=== PATIENT | male | born 1960 | race Caucasian/White ===

== ENCOUNTER 2017-12-29 18:39 | Observation (INO) | payer OTHER ==
[~2017-12-29] VITALS: Ht 177.8 cm; Wt 65.8 kg
--- NOTE | 2017-12-29 19:23 | ED GENERAL ADULT ---
History of Present Illness General Chief Complaint: General Adult Stated Complaint: "HIGH BLOOD PRESSURE 195/130" Source: patient Exam Limitations: no limitations Vital Signs & Intake/Output Vital Signs & Intake/Output Vital Signs Date Time Temp Pulse Resp B/P B/P Pulse O2 O2 Flow FiO2 Mean Ox Delivery Rate 12/30 0053 62 20 180/90 98 12/29 2300 63 20 160/102 98 12/29 2232 98.2 20 98 156/90 12/29 2232 68 156/90 12/29 2147 97.2 65 20 160/100 12/29 2016 160/100 12/29 1951 65 176/106 12/29 1950 97.2 65 20 176/106 12/29 1856 97.2 65 20 190/106 98 Room Air ED Intake and Output 12/30 0000 12/29 1200 Intake Total Output Total Balance Patient 195 lb Weight Weight Reported by Patient Measurement Method Allergies Coded Allergies: Penicillins (Intermediate, HIVES 12/29/17) Reconcile Medications Doxycycline Hyclate 100 MG CAPSULE 1 CAP PO BID LYME (Reported) Lisinopril 10 MG TABLET 1 TAB PO DAILY HYPERTENSION Simvastatin (Simvastatin*) 20 MG TABLET 1 TAB PO QPM CHOL (Reported) Triage Note: TRIAGE: PT TO ER C/C PRESSURE TYPE PAIN BEHIND EYES AND "TO MY PEC" MUSCLES. ALSO COMPLAINS OF FEELING TIRED, HAVING NO ENERGY AND HIGH B/P AT HOME. PT EVALUATED IN [place] BY AD COLLADO PRIOR TO TRIAGE. MANUAL B/P 190/106 AT TRIAGE. Triage Nurses Notes Reviewed? yes Onset: Gradual Duration: constant Timing: recent history Severity: moderate Severity Numbers: 5 HPI: Patient is a 57-year-old male with a past medical history of hyperlipidemia ADHD and LYME disease in which he takes when necessary doxycycline WHO PRESENTS TO THE emergency with concerns of a one-week history of generalized headache and pain behind the eye and generalized weakness and fatigue patient was evaluated at urgent care facility yesterday and noted to have significantly high blood pressure were blood pressure still continued today as well as symptoms were he presents to emergency room. Patient denies any fever chills neck pain shortness of breath cough chest pain arm pain jaw pain nausea vomiting Patient denies any acute onset thunderclap headache or worst headache of life (Suzanne DUONG,Oumou) Past History Travel History Traveled to [place] past 21 day No Medical History Any Pertinent Medical History? see below for history Neurological: NONE EENT: NONE Cardiovascular: hyperlipidemia Respiratory: NONE Gastrointestinal: NONE Hepatic: NONE Renal: NONE Musculoskeletal: NONE Psychiatric: NONE Endocrine: NONE Blood Disorders: NONE Cancer(s): NONE TRANSLATION DIRECTOR/Reproductive: NONE Surgical History Surgical History: non-contributory Psychosocial History What is your primary language Korean Tobacco Use: Never used ETOH Use: occasional use Illicit Drug Use: denies illicit drug use Family History Hx Contributory? No (Oumou Ryan) Review of Systems Review of Systems Constitutional: Reports: see HPI. Denies: chills, fever. EENTM: Reports: see HPI, eye pain. Respiratory: Reports: no symptoms. Cardiovascular: Reports: no symptoms. GI: Reports: no symptoms. Genitourinary: Reports: no symptoms. Musculoskeletal: Reports: no symptoms. Skin: Reports: no symptoms. Neurological/Psychological: Reports: see HPI, headache. Hematologic/Endocrine: Reports: no symptoms. Immunologic/Allergic: Reports: no symptoms. All Other Systems: Reviewed and Negative (Oumou Ryan) Physical Exam Physical Exam General Appearance: no apparent distress, alert, comfortable Head: atraumatic Eyes: Bilateral: normal appearance, PERRL. Ears, Nose, Throat: normal pharynx, normal ENT inspection, hearing grossly normal Neck: normal inspection, supple Respiratory: normal breath sounds, chest non-tender Cardiovascular: regular rate/rhythm Peripheral Pulses: 2+ radial (R) Gastrointestinal: normal bowel sounds, soft, non-tender Extremities: normal inspection, normal capillary refill, normal range of motion Skin: intact, normal color, warm/dry Core Measures ACS in differential dx? Yes CVA/TIA Diagnosis: No Sepsis Present: No Sepsis Focused Exam Completed? No (Oumou Ryan) Progress Differential Diagnoses I considered the following diagnoses in my evaluation of the patient: [ Hypertensive urgency hypertensive emergency END organ failure Lyme disease] Plan of Care: Orders Procedure Date/time Status Nothing by Mouth 12/30 B Active Add-on Test (ER Only) 12/30 136 Active Patient Data 12/30 117 Active Add-on Test (ER Only) 12/30 113 Active Saline Lock 12/[address] in observation 12/30 16 Active Misc Message 12/30 16 Active ED Holding Orders 12/30 16 Active Code Status 12/30 16 Active Vital Signs 12/29 2215 Active Add-on Test (ER Only) 12/29 2005 Active Add-on Test (ER Only) 12/29 1954 Active URINE DRUGS OF ABUSE 12/29 1918 Active URINALYSIS 12/29 1916 Complete THYROID STIMULATING HORMONE 12/29 1913 Active THYROXINE 12/29 1913 Active LYME TITRE 12/29 1913 Active ETHANOL 12/29 1913 Active Telemetry/Electrical Appliance Mechanic 12/29 1856 Active TROPONIN LEVEL 12/29 1843 Active COMPREHENSIVE METABOLIC PANEL 12/29 1843 Active CBC WITHOUT DIFFERENTIAL 12/29 1843 Complete EKG 12/29 1839 Active Laboratory Tests 12/29/171918: Methadone Screen Pending, Barbiturate Screen Pending, Ur Phencyclidine Scrn Pending, Amphetamines Screen Pending, U Benzodiazepines Scrn Pending, Urine Cocaine Screen Pending, Urine Cannabis Screen Pending, Urine Color YEL, Urine Clarity CLEAR, Urine pH 6.0, Ur Specific [place] 1.020, Urine Protein NEG, Urine Ketones NEG, Urine Nitrite NEG, Urine Bilirubin NEG, Urine Urobilinogen 0.2, Ur Leukocyte Esterase NEG, Ur Microscopic SEDIMENT EXAMINED, Urine RBC 10-15 H, Urine WBC RARE, Ur Epithelial Cells RARE, Urine Hemoglobin SMALL H, Urine Glucose NEG 12/29/171913: Anion Gap 14, Estimated GFR > 60, BUN/Creatinine Ratio 28.2 H, Glucose 94, Calcium 9.7, Total Bilirubin 0.9, AST 30, ALT 47, Alkaline Phosphatase 75, Troponin I < 0.01, Total Protein 7.6, Albumin 4.5, Globulin 3.1, Albumin/ Globulin Ratio 1.5, TSH 2.360, Thyroxine (T4) 6.5, CBC w Diff NO MAN DIFF REQ, RBC 5.38, MCV 88.9, MCH 29.7, MCHC 33.4, RDW 14.0, MPV 8.7, Gran % 58.2, Lymphocytes % 30.3, Monocytes % 7.9, Eosinophils % 3.1, Basophils % 0.5, Absolute Granulocytes 3.7, Absolute Lymphocytes 1.9, Absolute Monocytes 0.5, Absolute Eosinophils 0.2, Absolute Basophils 0, Lyme Disease Antibody Pending, Serum Alcohol Pending Patient on initial examination was resting complete bedside no apparent distress site monitor is placed unremarkable EKG and blood work Lyme currently pending patient was given IV labetalol with mild improvement of blood pressure Vasotec was administered with improvement of blood pressure patient was also given lisinopril by mouth patient also had mild symptomatic resolution of his presenting complaints. Patient was reevaluated however blood pressure continues to be significantly high unresolve with multiple dosings of antihypertensive medications in the emergency room patient will be admitted for hypertensive urgency Diagnostic Imaging: Viewed by Me: CT Scan. Radiology Impression: no acute abnormality, no fracture Initial ED EKG: normal p-waves, normal QRS complex, 75 BPM,NSR Comments: PATIENT: OUMOU VIVAR PRESENT AGE: 57 PATIENT ACCOUNT NO: [id number] : 60 LOCATION: [facility] ORDERING PHYSICIAN: Oumou DUONG SERVICE DATE: 12/29/17 EXAM TYPE: CAT - CT HEAD WO IV CONTRAST EXAMINATION: CT HEAD WITHOUT CONTRAST CLINICAL INFORMATION: Hypertension. Retroorbital pressure. COMPARISON: None TECHNIQUE: Contiguous axial imaging was performed from the skull base to vertex without intravenous administration of contrast. DLP: 619 mGy-cm FINDINGS: There is no evidence of acute intracranial hemorrhage or territorial infarction. No abnormal mass effect or midline shift is seen. Sung to white matter differentiation is well preserved. No extra-axial fluid collections are identified. The ventricles are normal in size. There is no abnormal attenuation within the brain parenchyma. The osseous structures and soft tissues are normal. There is minor mucosal thickening in the partially imaged left maxillary sinus. The mastoid air cells and middle ear cavities are clear. The orbits appear unremarkable. IMPRESSION: No acute intracranial pathology. DICTATED BY: Alex Pool MD DATE/TIME DICTATED:12/29/171933 RN DELIVERY:JOSEFINA DATE/TIME TRANSCRIBED:12/29/171933 CONFIDENTIAL, DO NOT COPY WITHOUT APPROPRIATE AUTHORIZATION. <Electronically signed in Other Vendor System> SIGNED BY: Alex Pool MD 12/29/171937 (Oumou Ryan) Departure Departure Disposition: STILL A PATIENT Condition: Stable Clinical Impression Primary Impression: Hypertensive urgency Referrals: Stephen WATTERS,Chun Wheeler (PCP) Departure Forms: Customer Survey General Discharge Information Prescriptions: Current Visit Scripts Lisinopril 1 TAB PO DAILY #30 TAB Admission Note Spoke With: Quang Alexander MD Documentation of Exam: Documentation of any treatments & extenuating circumstances including Concerns Regarding Discharge (functional status, medication knowledge or non-compliance, living conditions, etc.) that warrant an admission rather than observation: [ Patient requires telemetry monitoring IV antihypertensive medications cardiology consultation repeat labs due to failed treatment of hypertensive urgency in the emergency room] (Oumou Ryan) Observation Note Spoke With: Quang Alexander MD Patient In: Non-ED OBS Care Area Rationale for Observation: My rational for observation is as follows . pt with new onset hypertension, now improved after supportive medications.... pt to be monitored overnight, cards eval in AM. serial trops/ekg's. PA/JACQUARD CARD CUTTER Co-Sign Statement Statement: ED Attending supervision documentation- X[] I saw and evaluated the patient. I have also reviewed all the pertinent lab results and diagnostic results. I agree with the findings and the plan of care as documented in the PA's/JACQUARD CARD CUTTER's documentation. 12/29/17, 22:24.... pt feeling well, asymptomatic. bp improved with supportive meds, but given he has a new dx of hypertension, and his bp was initially quite high, will monitor as an obs, consider cards eval in the am. [] I have reviewed the ED Record and agree with the PA's/JACQUARD CARD CUTTER's documentation. [] Additions or exceptions (if any) to the PAs/JACQUARD CARD CUTTER's note and plan are summarized below: [] (Kit WATTERS,Bernardo Dumas) Critical Care Note Critical Care Note Critical Care Time: 75-104 min (Oumou Ryan)
[2017-12-29 19:33] LABS: ABSOLUTE BASOPHIL COUNT 0 /CUMM (0.0-0.2); ABSOLUTE EOSINOPHIL COUNT 0.2 /CUMM (0.0-0.7); ABSOLUTE GRANULOCYTE CT 3.7 /CUMM (1.4-6.5); ABSOLUTE LYMPH COUNT 1.9 /CUMM (1.2-3.4); ABSOLUTE MONOCYTE COUNT 0.5 /CUMM (0.10-0.60); BASOPHIL % 0.5 % (0.0-2.0); EOSINOPHIL % 3.1 % (0-5); GRANULOCYTE % 58.2 % (42.2-75.2); HEMATOCRIT 47.8 % (42-52); MEAN CORPUSCULAR HGB 29.7 PG (27.0-31.0); MEAN CORPUSCULAR HGB CONC 33.4 G/DL (33.0-37.0); MEAN CORPUSCULAR VOLUME 88.9 FL (80.0-94.0); MEAN PLATELET VOLUME 8.7 FL (7.4-10.4); PLATELET COUNT 194 /CUMM (130-400); RED BLOOD CELL CT 5.38 /CUMM (4.70-6.10); WHITE BLOOD CELL COUNT 6.4 /CUMM (4.8-10.8)
--- NOTE | 2017-12-29 19:38 | CT SCAN REPORT ---
EXAMINATION: CT HEAD WITHOUT CONTRAST CLINICAL INFORMATION: Hypertension. Retroorbital pressure. COMPARISON: None TECHNIQUE: Contiguous axial imaging was performed from the skull base to vertex without intravenous administration of contrast. DLP: 619 mGy-cm FINDINGS: There is no evidence of acute intracranial hemorrhage or territorial infarction. No abnormal mass effect or midline shift is seen. Sung to white matter differentiation is well preserved. No extra-axial fluid collections are identified. The ventricles are normal in size. There is no abnormal attenuation within the brain parenchyma. The osseous structures and soft tissues are normal. There is minor mucosal thickening in the partially imaged left maxillary sinus. The mastoid air cells and middle ear cavities are clear. The orbits appear unremarkable. IMPRESSION: No acute intracranial pathology.
[2017-12-29] MEDS ORDERED: DOXYCYCLINE HY100 M2 PO (19:52)
[2017-12-29] MEDS ORDERED: SIMVASTATIN20 M2 PO (19:52)
[2017-12-29] MEDS ORDERED: LISINOPRIL10 M1 PO (22:45)
--- NOTE | 2017-12-29 23:59 | History & Physical ---
Atif Armendariz MD 12/29/17 7801: General Information and HPI MD Statement: I have seen and personally examined OUMOU VIVAR and documented this H&P. The patient is a 57 year old M who presented with a patient stated chief complaint of [headache, elevated BP]. Source of Information: patient Exam Limitations: no limitations History of Present Illness: Patient is a 57-year-old male with a PMH significant for ADHD, HLD, lung disease who presented to the ED complaining of headache and elevated blood pressure. Patient states that for approximately 5 days he has had a gradually worsening frontal headache with a pressure-like sensation behind his eyes. Patient went to urgent 2 days prior to admission and recommended that he get a home BP machine to monitor his BP as it was elevated and urgent care. He states that over the past several days he has been checking his BP regularly and was initially SBP 139 and has been elevated ever since. His headache has progressively worsened as well. Does not kept him from sleeping. Today he presented to the ED because his SBP was over 200 he checked at home. At the time of interview and examination he reports that his headache is resolved. He denies any chest pain, visual changes, eye pain, numbness, tingling, weakness, lightheadedness, dizziness, loss of consciousness. Allergies/Medications Allergies: Coded Allergies: Penicillins (Intermediate, HIVES 12/29/17) Home Med list Amlodipine Besylate 5 MG TABLET 1 TAB PO DAILY HIGH BLOOD PRESSURE Amlodipine Besylate 5 MG TABLET 1 TAB PO DAILY HIGH BLOOD PRESSURE Please take as prescribed. Doxycycline Hyclate 100 MG CAPSULE 1 CAP PO BID LYME (Reported) Lisinopril 10 MG TABLET 1 TAB PO DAILY HYPERTENSION Simvastatin (Simvastatin*) 20 MG TABLET 1 TAB PO QPM CHOL (Reported) Past History Travel History Traveled to [place] past 21 day No Medical History Neurological: NONE EENT: NONE Cardiovascular: hyperlipidemia Respiratory: NONE Gastrointestinal: NONE Hepatic: NONE Renal: NONE Musculoskeletal: NONE Psychiatric: ADHD Endocrine: NONE Blood Disorders: NONE Cancer(s): NONE SCREED PERSON/Reproductive: NONE Surgical History Surgical History: non-contributory Past Family/Social History Family History Relations & Conditions if any Relation not specified for: *No pertinent family history Psychosocial History Smoking Status: Never Smoked ETOH Use: occasional use Illicit Drug Use: denies illicit drug use Functional Ability ADLs Independent: dressing, eating, toileting, bathing. Ambulation: independent IADLs Independent: shopping, housework, finances, food prep, telephone, transportation , medication admin. Review of Systems Review of Systems Constitutional: Reports: malaise. Denies: chills, diaphoresis, fever. EENTM: Denies: blurred vision, double vision, visual changes. Cardiovascular: Denies: chest pain, orthopena, palpitations, syncope. Respiratory: Denies: cough, short of breath. GI: Reports: no symptoms. Genitourinary: Reports: no symptoms. Musculoskeletal: Reports: no symptoms. Skin: Reports: no symptoms. Neurological/Psychological: Reports: headache. Denies: numbness, paresthesia, tingling, weakness. Exam & Diagnostic Data Last 24 Hrs of Vital Signs/I&O Vital Signs Date Time Temp Pulse Resp B/P B/P Pulse O2 O2 Flow FiO2 Mean Ox Delivery Rate 12/30 0452 50 162/98 12/30 0330 98.2 62 20 188/100 12/30 0330 62 188/100 12/30 0053 62 20 180/90 98 12/29 2300 63 20 160/102 98 12/29 2233 98.2 20 98 156/90 12/29 2233 68 156/90 12/29 2148 97.2 65 20 160/100 12/29 2017 160/100 12/29 1952 65 176/106 12/29 1951 97.2 65 20 176/106 12/29 1857 97.2 65 20 190/106 98 Room Air Intake & Output 12/30 0800 12/30 0000 12/29 1600 Intake Total Output Total Balance Patient 195 lb Weight Weight Reported by Patient Measurement Method Physical Exam General Appearance Alert, Oriented X3, Cooperative, No Acute Distress Skin Temp/Moisture Exam: Warm/Dry Sepsis Skin Exam (color): Normal for Ethnicity HEENT Atraumatic, PERRLA, EOMI, Mucous Membr. moist/pink, no papilledema appreciated on fundoscopic exam Neck Supple, No JVD Cardiovascular Regular Rate, Normal S1, Normal S2 Lungs Clear to Auscultation, Normal Air Movement Abdomen Normal Bowel Sounds, Soft, No Tenderness Neurological Normal Speech, Strength at 5/5 X4 Ext, Normal Tone, Sensation Intact, Cranial Nerves 3-12 NL Extremities No Clubbing, No Cyanosis, No Edema Vascular Normal Pulses, Pulses Symmetrical Last 24 Hrs of Labs/Rangel: Laboratory Tests 12/30/17 0347: Troponin I < 0.01 12/29/171918: Urine Opiates Screen < 100.00, Methadone Screen < 40, Barbiturate Screen < 60, Ur Phencyclidine Scrn < 6.00, Amphetamines Screen < 100, U Benzodiazepines Scrn < 85, Urine Cocaine Screen < 50, Urine Cannabis Screen < 5.00, Urine Color YEL, Urine Clarity CLEAR, Urine pH 6.0, Ur Specific [place] 1.020, Urine Protein NEG, Urine Ketones NEG, Urine Nitrite NEG, Urine Bilirubin NEG, Urine Urobilinogen 0.2, Ur Leukocyte Esterase NEG, Ur Microscopic SEDIMENT EXAMINED, Urine RBC 10- 15 H, Urine WBC RARE, Ur Epithelial Cells RARE, Urine Hemoglobin SMALL H, Urine Glucose NEG 12/29/171913: Anion Gap 14, Estimated GFR > 60, BUN/Creatinine Ratio 28.2 H, Glucose 94, Calcium 9.7, Total Bilirubin 0.9, AST 30, ALT 47, Alkaline Phosphatase 75, Troponin I < 0.01, Total Protein 7.6, Albumin 4.5, Globulin 3.1, Albumin/ Globulin Ratio 1.5, TSH 2.360, Thyroxine (T4) 6.5, CBC w Diff NO MAN DIFF REQ, RBC 5.38, MCV 88.9, MCH 29.7, MCHC 33.4, RDW 14.0, MPV 8.7, Gran % 58.2, Lymphocytes % 30.3, Monocytes % 7.9, Eosinophils % 3.1, Basophils % 0.5, Absolute Granulocytes 3.7, Absolute Lymphocytes 1.9, Absolute Monocytes 0.5, Absolute Eosinophils 0.2, Absolute Basophils 0, Lyme Disease Antibody Pending, Serum Alcohol < 10.0 Diagnostic Data EKG Results NSR, HR [address] No acute intracranial pathology. Assessment/Plan Assessment: Patient is a 57-year-old male with a PMH significant for ADHD, HLD, lung disease who presented to the ED complaining of headache and elevated blood pressure. He has been checking his BP frequently at home and states that it has increased significantly from an SBP of 139 approximately 2 days ago to over 200. His headache is also progressively gotten worse. He has no focal neurological deficits, denies any visual changes, head CT was negative for any acute intracranial pathology. She has no history of hypertension and has never been on any antihypertensive medication. In the ED the patient received labetalol IV 10 mg, enalaprilat IV 1.25 mg, lisinopril 10 mg. He was initially going to be discharged after his BP decreased however when rechecking it had again increased to 180/90. Problem list #Hypertensive urgency #History of ADHD, HLD, Lyme Plan -Placed in observation on telemetry floor -Continuous telemetry monitoring -Cardiology consult in the a.m. -Start amlodipine 5 mg daily -Continue home statin dose - Follow-up lyme titer -Heart healthy diet -DVT prophylaxis with subcutaneous heparin, ALPS -CODE STATUS: Full code As Ranked By This Provider Problem List: 1. Hypertensive urgency Core Measures/Misc (08/06) Acute Coronary Syndrome ACS Diagnosis: No Congestive Heart Failure Congestive Heart Failure Diagnosis No Cerebrovascular Accident CVA/TIA Diagnosis: No VTE (View Protocol) VTE Risk Factors Age>40 No Mechanical VTE Prophylaxis d/t N/A MechProphylax Ordered No VTE Pharm Prophylaxis d/t NA PharmProphylax ordered Sepsis (View protocol) Sepsis Present: No Bharath WATTERS,Johnathan 12/30/17 0114: Resident Review Statement Resident Statement: examined this patient, discussed with international specialist, agreed with international specialist Other Findings: This is a 57-year-old gentleman with a past medical history significant for hyperlipidemia, ADHD, Lyme disease with intermittent use of doxycycline for flareups, presents for evaluation of 1 week onset of frontal headaches with pain radiating bilaterally to the back of his eyes. Noted recently at an urgent care screening he was found to have a high blood pressure, prompting him to by an ambulatory BP machine and his home recordings were remarkable for some elevated BP is allegedly up to the 200. He denies any chest pain, palpitation, altered mental status, creased urinary output or vision changes. Impression Hypertensive urgency Hypertension History of chronic disease: Hyperlipidemia and ADHD Plan Place in telemetry observation for close cardiac monitoring Decreased systolic blood pressure no more than 20-25%, will be detrimental to significantly decrease BP in the absence of any organ damage Serial trops and EKG to rule out ACS Start patient on amlodipine and await cardiology recommendation on suitable BP med Continue statin medication Echocardiogram in the morning Buster Alexander MDalaksethan 12/30/17 0138: Attending MD Review Statement Attending Statement Attending MD Statement: examined this patient, discuss w/resident/PA/ELASTIC TAPE INSERTER, agreed w/resident/PA/ELASTIC TAPE INSERTER, reviewed images, amended to note Attending Assessment/Plan: 57 yo M with h/o HLD, Lyme disease, ADHD, is here for evaluation of frontal headache and pain behind bilateral eyes for past 1 week. Patient went to an Urgent care clinic and was noted to have high BP, was asked to measure his BP with a home machine which he has been doing. BP has been in the range of 130-200 's. Hence he came to ER. He took tylenol with some relief. He c/o feeling tired and fatigued. 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 He denies vision changes, chest pain, dyspnea , palpitations or paresthesias. He has no prior diagnosis of hypertension and has not been on any meds. He also reports diarrhea for past 1 week, but nonbloody, not associated with abdominal cramps or N/V. 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 He underwent EKG and stress test that was essentially normal as per patient. Vitals stable except for BP 190/106 --> 160/100 --> 188/100 and HR 50-60's. Exam as above. Labs: troponin neg, thyroid functions normal, BUN 31, creat normal, UA / Utox neg. CT head: no acute pathology. EKG: Sinus rhythm, no acute changes. He received IV labetalol, vasotec and lisinopril in the ER. Assessment and plan: 1. Hypertensive urgency, no evidence of end-organ damage 2. Newly diagnosed hypertension, need to rule out secondary causes 3. History of hyperlipidemia 4. ADHD - 23 hour observation on Telemetry - Monitor for arrhythmias - Keep SBP ~ 140's and then gradually lower to normal - Initiate amlodipine 5 mg then uptitrate as needed - IV hydralazine as needed - Serial EKG and troponin to rule out ACS - Echocardiogram - Cardio consult - Outpatient follow up to rule out secondary causes of hypertension - Check lipid panel, HbA1c. - Continue statin - If diarrhea persists, he needs work up. DVT ppx Lovenox. Full code. Observation Initial Note - I have personally examined OUMOU VIVAR on 12/30/17 at 0139. The disposition of GHAZALAOUMOU Calderon is uncertain at this time and before a determination can be made, he requires a period of observation for the following reasons [Hypertensive urgency]
[2017-12-30 06:34] VITALS: BP 150/88
--- NOTE | 2017-12-30 09:01 | PN-Observation ---
Observation Note Observation Note _ I have personally examined OUMOU VIVAR. him disposition is uncertain at this time. Before a determination can be made, he requires continued observation for the following reasons hypertensive urgency. Assessment/Plan Assessment: This is a 57-year-old gentleman with a past medical history significant for hyperlipidemia, ADHD, Lyme disease with intermittent use of doxycycline for flareups, presents for evaluation of 1 week onset of frontal headaches with pain radiating bilaterally to the back of his eyes. Noted recently at an urgent care screening he was found to have a high blood pressure, prompting him to by an ambulatory BP machine and his home recordings were remarkable for some elevated BP is allegedly up to the 200. He denies any chest pain, palpitation, altered mental status, creased urinary output or vision changes. Impression Hypertensive urgency Hypertension History of chronic disease: Hyperlipidemia and ADHD Plan Continue telemetry observation for close cardiac monitoring SBP around 150, continue with amlodipine 5mg dose trops negative await cardiology recommendation Continue statin medication Echocardiogram in the morning Problem List: 1. Hypertensive urgency 2. Hypertension Subjective Subjective: Seen and examined at bedside, patient was comfortably sleeping. Endorses headaches but reports much better compared to previous hours. Denies any chest pain, palpitation, vision changes, altered mental status, neurofocal changes or syncope. Review of Systems Constitutional: Reports: see HPI. Objective Last 24 Hrs of Vital Signs/I&O Vital Signs Date Time Temp Pulse Resp B/P B/P Pulse O2 O2 Flow FiO2 Mean Ox Delivery Rate 12/30 0534 98.2 55 20 150/88 98 Room Air 12/30 0609 50 160/88 12/30 0606 128/84 12/30 0452 50 162/98 12/30 0330 98.2 62 20 188/100 12/30 0330 62 188/100 12/30 0053 62 20 180/90 98 12/29 2300 63 20 160/102 98 12/29 2232 98.2 20 98 156/90 12/29 2232 68 156/90 12/29 2147 97.2 65 20 160/100 12/29 2016 160/100 12/29 1951 65 176/106 12/29 1950 97.2 65 20 176/106 12/29 1857 97.2 65 20 190/106 98 Room Air Intake & Output 12/30 1600 12/30 0800 12/30 0000 Intake Total Output Total Balance Patient 65.771 kg 88.451 kg Weight Weight Reported by Patient Measurement Method Physical Exam General Appearance: Alert, Oriented X3, Cooperative Other Physical Findings: Skin Temp/Moisture Exam: Warm/Dry Sepsis Skin Exam (color): Normal for Ethnicity HEENT Atraumatic, PERRLA, EOMI, Mucous Membr. moist/pink, no papilledema appreciated on fundoscopic exam Neck Supple, No JVD Cardiovascular Regular Rate, Normal S1, Normal S2 Lungs Clear to Auscultation, Normal Air Movement Abdomen Normal Bowel Sounds, Soft, No Tenderness Neurological Normal Speech, Strength at 5/5 X4 Ext, Normal Tone, Sensation Intact, Cranial Nerves 3-12 NL Extremities No Clubbing, No Cyanosis, No Edema Vascular Normal Pulses, Pulses Symmetrical Current Medications: Current Medications Sig/Addy Start time Last Medication Dose Route Stop Time Status Admin Amlodipine Besylate 5 MG DAILY 12/31 1000 AC PO Amlodipine Besylate 0 .STK-MED ONE 12/30 0326 DC PO Amlodipine Besylate 5 MG ONCE ONE 12/30 0300 DC 12/30 PO 12/30 030 0330 Atorvastatin Calcium 10 MG 1700 12/30 1700 AC PO Enalaprilat 1.25 MG ONCE ONE 12/29 214 DC 12/29 IV 12/29 2145 2148 Enalaprilat 0 .STK-MED ONE 12/29 2144 DC IV Enalaprilat 0 .STK-MED ONE 12/29 214 DC IV Heparin Sodium 5,000 UNIT Q8 12/30 0626 AC 12/30 (Porcine) CA 0652 Influenza Virus 0.5 ML ONCE ONE 12/30 0645 DC Vaccine IM 12/30 0646 Labetalol HCl 0 .STK-MED ONE 12/29 1949 DC IV Labetalol HCl 10 MG ONCE ONE 12/29 1900 DC 12/29 IV 12/29 190 195 Lisinopril 10 MG ONCE ONE 12/29 2229 DC 12/29 PO 12/29 2230 223 Lisinopril 0 .STK-MED ONE 12/29 223 DC PO Melatonin 5 MG ONCE ONE 12/30 0400 DC PO 12/30 0401 Last 24 Hrs of Labs/Mics: Laboratory Tests 12/30/17 0654: Hemoglobin A1c Pending 12/30/17 0347: Troponin I < 0.01, Triglycerides Pending, Cholesterol Pending, LDL Cholesterol, Calc Pending, HDL Cholesterol Pending, Cholesterol/HDL Ratio Pending 12/29/171918: Urine Opiates Screen < 100.00, Methadone Screen < 40, Barbiturate Screen < 60, Ur Phencyclidine Scrn < 6.00, Amphetamines Screen < 100, U Benzodiazepines Scrn < 85, Urine Cocaine Screen < 50, Urine Cannabis Screen < 5.00, Urine Color YEL, Urine Clarity CLEAR, Urine pH 6.0, Ur Specific [place] 1.020, Urine Protein NEG, Urine Ketones NEG, Urine Nitrite NEG, Urine Bilirubin NEG, Urine Urobilinogen 0.2, Ur Leukocyte Esterase NEG, Ur Microscopic SEDIMENT EXAMINED, Urine RBC 10- 15 H, Urine WBC RARE, Ur Epithelial Cells RARE, Urine Hemoglobin SMALL H, Urine Glucose NEG 12/29/171913: Anion Gap 14, Estimated GFR > 60, BUN/Creatinine Ratio 28.2 H, Glucose 94, Calcium 9.7, Total Bilirubin 0.9, AST 30, ALT 47, Alkaline Phosphatase 75, Troponin I < 0.01, Total Protein 7.6, Albumin 4.5, Globulin 3.1, Albumin/ Globulin Ratio 1.5, TSH 2.360, Thyroxine (T4) 6.5, CBC w Diff NO MAN DIFF REQ, RBC 5.38, MCV 88.9, MCH 29.7, MCHC 33.4, RDW 14.0, MPV 8.7, Gran % 58.2, Lymphocytes % 30.3, Monocytes % 7.9, Eosinophils % 3.1, Basophils % 0.5, Absolute Granulocytes 3.7, Absolute Lymphocytes 1.9, Absolute Monocytes 0.5, Absolute Eosinophils 0.2, Absolute Basophils 0, Lyme Disease Antibody Pending, Serum Alcohol < 10.0
[2017-12-30 15:19] VITALS: BP 132/72
[2017-12-30] MEDS ORDERED: AMLODIPINE BESYL5 M1 PO ×2 (16:23→18:38)
--- NOTE | 2017-12-30 18:25 | Patient Discharge Instructions ---
Discharge Instructions General Discharge Information You were seen/treated for: High Blood Pressure Special Instructions: Please follow up with your pcp within 1 week of discharge. Please follow up with the washer assembler within 1 week. Please note the medications that have been added and take as prescribed. Diet Continue normal diet: No Recommended Diet: Heart Healthy Activity Full Activity/No Limits: No Activity Self Limited: Yes Acute Coronary Syndrome Inclusion Criteria At DC or during hospital stay patient has or had the following: ACS DIAGNOSIS No Discharge Core Measures Meds if any: Prescribed or Continued at Discharge Meds if any: NOT Prescribed or Continued at Discharge Congestive Heart Failure Inclusion Criteria At DC or during hospital stay patient has or had the following: CHF DIAGNOSIS No Discharge Core Measures Meds if any: Prescribed or Continued at Discharge Meds if any: NOT Prescribed or Continued at Discharge Cerebrovascular accident Inclusion Criteria At DC or during hospital stay patient has or had the following: CVA/TIA Diagnosis No Discharge Core Measures Meds if any: Prescribed or Continued at Discharge Meds if any: NOT Prescribed or Continued at Discharge Venous thromboembolism Inclusion Criteria VTE Diagnosis No VTE Type NONE VTE Confirmed by (Test) NONE Discharge Core Measures - Per Current guidelines, there needs to be overlap - treatment for the first 5 days of Warfarin therapy. - If discharged on Warfarin prior to 5 days of - overlap therapy, the patient will need to be - assessed for post discharge needs including - *Post discharge parental anticoagulation - *Warfarin and/or parental anticoagulation education - *Follow up date to check INR post discharge At least 5 days overlap therapy as Inpatient No Meds if any: Prescribed or Continued at Discharge Note: Overlap Therapy is Warfarin and Anticoagulant Meds if any: NOT Prescribed or Continued at Discharge
[2017-12-30 18:28] VITALS: BP 130/78
--- NOTE | 2017-12-30 23:02 | PN- Att Addend ---
Attending Addendum Attending Brief Note The patient was seen and discussed with house staff. Headache resolved and BP returned to normal. Troponin levels normal. OK to discharge to home on Lisinopril/Norvasc with follow-up with PCP Dr. Mitchell next week.
== END 2017-12-30 19:04 ==
LOC: ERH 18:39 → ERHI 12-30 00:17 → 1NO 12-30 00:17 → ENRESERV 12-30 05:15 → 1NO 12-30 06:12 → ENPENDDIS 12-30 18:54 → 1NO 12-30 19:04
PROVIDERS: Physician Assistant; Physician Assistant Medical
DX: I16.0 Hypertensive urgency (principal); F90.9 Attention-deficit hyperactivity disorder, unspecified type; E78.5 Hyperlipidemia, unspecified; Z23 Encounter for immunization; A69.20 Lyme disease, unspecified; J98.4 Other disorders of lung; R51 Headache
CPT/HCPCS: 6020; 86618; 36415; 80307; 81001; 93005; 93010; 96372; 96374; 96375; 99291; G0008; G0378; G0480; J1644